=== PATIENT | female | born 1985 | race Caucasian/White ===

== ENCOUNTER 2025-09-21 17:03 | Emergency (ER) | payer OTHER ==
[~2025-09-21] VITALS: Ht 165.1 cm; Wt 75.9 kg
[2025-09-21 17:35] VITALS: TEMP 98.1
[2025-09-21 19:46] VITALS: BP 113/72; PULSE 63; RESP 18; O2SAT 98
[2025-09-21] MEDS: IBUPROFEN 400 MG TABLET PO ONE (22:47)
[2025-09-21] MEDS: ACETAMINOPHEN 500 MG TABLET PO ONE (22:47)
== END 2025-09-21 22:52 | disposition home or self-care (01) ==
LOC: EMS 17:03
DX: J02.8 Acute pharyngitis due to other specified organisms (principal); I10 Essential (primary) hypertension; B97.89 Other viral agents as the cause of diseases classified elsewhere
CPT/HCPCS: 99284; 87081; 87430; J8540; Z7502; Z7610